=== PATIENT | male | born 1995 | race Caucasian/White ===

== ENCOUNTER 2024-07-21 00:10 | Day surgery (SDC) | payer SELFPAY ==
[2024-07-21] MEDS ORDERED: Sodium Chloride 0.9% 10 ML Syringe FLUSH PRN (00:21)
[2024-07-21 00:25] LABS: BASOPHILS ABSOLUTE AUTO 0.09 K/uL (0.00-0.20); BASOPHILS PERCENT AUTO 0.6 % (0.0-1.0); EOSINOPHILS ABSOLUTE AUTO 0.46 K/uL (0.00-0.45); EOSINOPHILS PERCENT AUTO 2.9 % (0.0-6.0); HEMATOCRIT 43.7 % (42.0-52.0); HEMOGLOBIN 15.2 g/dL (14.0-18.0); IMMATURE GRAN ABSOLUTE AUTO 0.06 K/uL (0.00-0.05); IMMATURE GRAN PERCENT AUTO 0.4 % (0.0-0.4); LYMPHOCYTES ABSOLUTE AUTO 3.05 K/uL (1.00-4.80); LYMPHOCYTES PERCENT AUTO 19.4 % (24.0-44.0); MEAN CORPUSCULAR HGB CONC 34.8 g/dL (32.0-36.0); MEAN CORPUSCULAR VOLUME 86.2 fL (83.0-99.0); NEUTROPHILS ABSOLUTE AUTO 10.99 K/uL (1.80-7.70); NEUTROPHILS PERCENT AUTO 69.7 % (41.0-71.0); PLATELET COUNT,PLT 321 K/uL (150-400); RED BLOOD CELL COUNT 5.07 M/uL (4.52-5.90); WHITE BLOOD CELL COUNT,WBC 15.75 K/uL (3.9-11.3)
[2024-07-21] MEDS: Glucagon,Human Recombinant 1 MG Vial IVPUSH ONE (00:37)
[2024-07-21] MEDS: Sodium Chloride 0.9% 1,000 ML IV ONE (00:37)
[2024-07-21 01:19] LABS: A/G RATIO 1.1 (0.9-1.6); ALANINE AMINOTRANSFERASE,ALT 22 IU/L (14-63); ALBUMIN 4.2 g/dL (3.4-5.0); ALKALINE PHOSPHATASE 110 U/L (46-116); ASPARTATE AMNIOTRANSFERASE,AST 17 IU/L (15-37); BILIRUBIN TOTAL 0.3 mg/dL (0.2-1.0); BLOOD UREA NITROGEN,BUN 19 mg/dL (7.0-18.0); CALCIUM 8.8 mg/dL (8.5-10.1); CARBON DIOXIDE,CO2 25.9 mmol/L (21.0-32.0); CHLORIDE,CL 103 mmol/L (98-107); CREATININE 0.9 mg/dL (0.8-1.3); GLUCOSE RANDOM 103 mg/dL (74-106); MAGNESIUM 1.9 mg/dL (1.8-2.4); POTASSIUM,K 3.7 mmol/L (3.5-5.1); PRO B-TYPE NATRIUR PEPT,BNPPRO 46 pg/mL (0-125); PROTEIN TOTAL,TP 7.9 g/dL (6.4-8.2); SODIUM,NA 139 mmol/L (136-148)
[2024-07-21 01:23] LABS: ESTIMATED GFR 121 mL/min (>60)
[2024-07-21] MEDS: Iopamidol 755 MG/ML 500 ML Multipack Bottle IVPUSH ONE (01:42)
[2024-07-21] MEDS: Ondansetron 4 MG/2 ML SDV IVPUSH ONE (02:02)
[2024-07-21] MEDS: Pantoprazole 40 MG in Sodium Chloride 0.9% 10 ML IVPUSH ONE (02:58)
[2024-07-21] MEDS: Promethazine 25 MG/ML SDV IM ONE (03:06)
[2024-07-21] MEDS: Morphine 4 MG/ML Syringe IVPUSH ONE (03:06)
[2024-07-21] MEDS: Sodium Chloride 0.9% 1,000 ML IV SCH (03:19)
[2024-07-21] MEDS ORDERED: Propofol 200 MG/20 ML SDV ONE (06:40)
[2024-07-21] MEDS ORDERED: fentaNYL 100 MCG/2 ML SDV ONE (06:40)
[2024-07-21] MEDS ORDERED: Midazolam 1 MG/ML 2 ML SDV ONE (06:40)
[2024-07-21] MEDS ORDERED: Lidocaine 2% 5 ML SDV ONE (06:41)
[2024-07-21] MEDS ORDERED: Lactated Ringers 1,000 ML IV SCH ×2 (07:00→08:00)
[2024-07-21] MEDS ORDERED: Ondansetron 4 MG/2 ML SDV ONE (07:21)
[2024-07-21] MEDS ORDERED: Succinylcholine/Sod PF 100 MG/5 ML SYRINGE IV ONE (07:22)
[2024-07-21] MEDS ORDERED: Metoclopramide 10 MG/2 ML SDV IVPUSH PRN (07:33)
[2024-07-21] MEDS ORDERED: Morphine 2 MG/ML SYRINGE IVPUSH PRN (07:33)
[2024-07-21] MEDS ORDERED: Albuterol 0.083% 2.5 MG/3 ML Neb Soln NEB PRN (07:33)
[2024-07-21] MEDS ORDERED: HYDROmorphone 1 MG/ML Syringe IVPUSH PRN (07:33)
[2024-07-21] MEDS ORDERED: Naloxone 0.4 MG/ML SDV IVPUSH PRN (07:33)
[2024-07-21] MEDS ORDERED: Phenylephrine HCl In 0.9% NaCl 1 MG/10 ML Syringe IVPUSH PRN (07:33)
[2024-07-21] MEDS ORDERED: Ondansetron 4 MG/2 ML SDV IVPUSH PRN (07:33)
[2024-07-21] MEDS ORDERED: fentaNYL 50 MCG/ML SDV IVPUSH PRN (07:33)
== END 2024-07-21 09:15 | disposition home or self-care (01) ==
LOC: MW.ED 00:10 → MW.SDS 06:21 → MW.ED 07:20 → MW.SDS 09:15
PROVIDERS: ATTEND Surgery
DX: T18.128A Food in esophagus causing other injury, initial encounter (principal); K29.50 Unspecified chronic gastritis without bleeding; K31.89 Other diseases of stomach and duodenum; F17.210 Nicotine dependence, cigarettes, uncomplicated; F17.290 Nicotine dependence, other tobacco product, uncomplicated; Z88.0 Allergy status to penicillin
CPT/HCPCS: 36415; 43239; 43247; 71045; 71260; 80053; 83735; 83880; 84484; 85025; 93005; 96361; 96372; 96374; 96375; 99285; J0330; J1610; J2250; J2270; J2405; J2470; J2550; J2704; J3010; J3490; J7030; Q9967; 00731; 99283

== ENCOUNTER 2025-01-25 19:14 | Emergency (ER) | payer SELFPAY | END 2025-01-25 20:05 | disposition left against medical advice (07) | LOC: MW.ED 19:14 | DX: Z53.21 Procedure and treatment not carried out due to patient leaving prior to being seen by health care provider (principal) ==